=== PATIENT | male | born 1975 | race Hispanic/Latino ===

== ENCOUNTER 2018-01-11 13:57 | Day surgery (SDC) | payer OTHER ==
[2018-01-11 14:51] LABS: Urine Blood NEGATIVE (NEG); Urine Glucose NEGATIVE (NEG); Urine Protein NEGATIVE (NEG); Urine pH 6.5 (5.0-7.0)
[2018-01-11] MEDS ORDERED: NA CHLORIDE 0.9% 1,000 ML ONE (15:09)
[2018-01-11 15:44] LABS: Absolute Lymphocytes (CBC) 1.7 K/uL (0.7-4.9); Absolute Monocytes 0.5 K/uL (0.1-1.3); Absolute Neutrophil 3.5 K/uL (1.8-8.0); Basophils % 0.7 % (0-1.3); Eosinophils % 2.9 % (0-4.4); Hematocrit 45.3 % (39.6-49.0); Lymphocytes % 29.1 % (15.3-44.8); MCH 28.5 pg (27.0-35.0); MCV 86.6 fL (80-100); MPV 8.5 fL (7.6-11.3); RBC Red Blood Cell Count 5.23 M/uL (4.33-5.43)
[2018-01-11 15:55] LABS: Glomerular Filtration Rate > 60 mL/min (>60)
[2018-01-11 15:56] LABS: Bicarbonate 26 mEq/L (21-31); Glucose Level 94 mg/dL (65-120); Lipase 16 U/L (22-51); Potassium 3.8 mEq/L (3.6-5.0); Sodium Level 137 mEq/L (135-145)
[2018-01-11 16:02] LABS: ALT/SGPT 54 IU/L (10-60); AST/SGOT 39 IU/L (10-42); Albumin 4.5 g/dL (3.2-5.5); Alkaline Phosphatase 59 IU/L (42-121); BUN Blood Urea Nitrogen 12 mg/dL (6-20); Bilirubin Direct 0.1 mg/dL (0-0.2); Bilirubin Total 0.6 mg/dL (0.3-1.2); Glomerular Filtration Rate > 90 mL/min (=/>90); Protein, Total 7.4 g/dL (6.0-8.3)
--- NOTE | 2018-01-11 17:18 | RAD REPORT ---
EXAM DESCRIPTION: CT - Abdomen Pelvis W Contrast - 01/11/2018 5:00 pm CLINICAL HISTORY: Abdominal pain. Right lower quadrant pain x2 days COMPARISON: 2014 TECHNIQUE: Computed axial tomography of the abdomen and pelvis was obtained. 100 cc Isovue-300 is ad ministered intravenously. Oral contrast was given. All CT scans are performed using dose optimization technique as appropriate and may include automated exposure control or mA/KV adjustment according to patient size. FINDINGS: The liver, spleen, pancreas, adrenals and kidneys appear unremarkable. The proximal, mid and most of the distal appendix are normal. The distal appendix is indistinct. A fl uid collection measuring 37 x 19 millimeter abuts the distal aspect of the appendix. There is no evidence of diverticulitis IMPRESSION: The distal appendix is indistinct. A 37 x 19 millimeter fluid collection abuts the dista l appendix. This may indicate distal tip appendicitis.
--- NOTE | 2018-01-11 17:35 | ER ---
Nurse's Notes [facility] Name: Wilson Mays Age: 42 yrs Sex: Male : 1975 Arrival Date: 01/11/2018 Time: 14:01 Bed 15 Private MD: Diagnosis: Acute appendicitis Presentation: 01/11 14:03 Presenting complaint: Patient states: i have pain on my R lower abd that spread into hj all my abdomen, started 2 days go; denies nausea and vomiting; denies fever; reports constipation;. Transition of care: patient was not received from another setting of care. Onset of symptoms was January 11, 2018. Care prior to arrival: None. 14:03 Method Of Arrival: Ambulatory hj 14:03 Acuity: HELEN 3 hj Triage Assessment: 14:05 General: Appears in no apparent distress. uncomfortable, Behavior is calm, cooperative, hj appropriate for age. Pain: Complains of pain in right lower quadrant. GI: Reports lower abdominal pain. Historical: - Allergies: 14:05 No Known Allergies; hj - Home Meds: 14:05 None [Active]; hj - PMHx: 14:05 None; hj - PSHx: 14:05 None; hj - Family history:: not pertinent. - Hospitalizations: : No recent hospitalization is reported. Screenin:28 Abuse screen: Denies threats or abuse. Denies injuries from another. Nutritional aj1 screening: No deficits noted. Tuberculosis screening: No symptoms or risk factors identified. 19:15 Fall Risk None identified. lp1 Assessment: 14:05 GI: Bowel sounds Abd is soft Abdomen is tender to palpation. hj 14:28 General: Appears in no apparent distress. uncomfortable, Behavior is calm, cooperative, aj1 appropriate for age. Pain: Complains of pain in right lower quadrant Pain radiates to umbilical area and left lower quadrant Pain currently is 7 out of 10 on a pain scale. Quality of pain is described as burning, sharp, Pain began 2-3 days ago. Is intermittent, Alleviated by nothing. Aggravated by bending over. Neuro: Level of Consciousness is awake, alert, obeys commands, Oriented to person, place, time, situation, Speech is normal, Facial symmetry appears normal. Cardiovascular: Patient's skin is warm and dry. Respiratory: Airway is patent Respiratory effort is even, unlabored, Respiratory pattern is regular, symmetrical. GI: Abdomen is flat, non-distended, Bowel sounds present X 4 quads. Abd is soft X 4 quads Abdomen is tender to palpation in left upper quadrant, right lower quadrant and left lower quadrant Reports lower abdominal pain, constipation, Patient currently denies diarrhea, nausea, vomiting. : No signs and/or symptoms were reported regarding the genitourinary system. Denies burning with urination. EENT: No signs and/or symptoms were reported regarding the EENT system. Derm: No signs and/or symptoms reported regarding the dermatologic system. Skin is pink, warm \T\ dry. normal. Musculoskeletal: No signs and/or symptoms reported regarding the musculoskeletal system. Circulation, motion, and sensation intact. 15:19 Reassessment: Patient appears in no apparent distress at this time. No changes from aj1 previously documented assessment. Patient and/or family updated on plan of care and expected duration. Pain level reassessed. Patient is alert, oriented x 3, equal unlabored respirations, skin warm/dry/pink. 16:20 Reassessment: Patient appears in no apparent distress at this time. No changes from aj1 previously documented assessment. Patient and/or family updated on plan of care and expected duration. Pain level reassessed. Patient is alert, oriented x 3, equal unlabored respirations, skin warm/dry/pink. 17:21 Reassessment: Patient appears in no apparent distress at this time. No changes from aj1 previously documented assessment. Patient and/or family updated on plan of care and expected duration. Pain level reassessed. Patient is alert, oriented x 3, equal unlabored respirations, skin warm/dry/pink. 18:21 Reassessment: Patient and/or family updated on plan of care and expected duration. Pain aj1 level reassessed. General: Appears in no apparent distress. uncomfortable, Behavior is calm, cooperative, appropriate for age. Pain: Complains of pain in abdomen. Neuro: Level of Consciousness is awake, alert, obeys commands. Cardiovascular: Patient's skin is warm and dry. Respiratory: Airway is patent Respiratory effort is even, unlabored, Respiratory pattern is regular, symmetrical. GI: Abdomen is flat, non-distended, Abd is soft X 4 quads. Derm: Skin is pink, warm \T\ dry. normal. Musculoskeletal: Circulation, motion, and sensation intact. Vital Signs: 14:05 BP 125 / 89; Pulse 64; Resp 18; Temp 97.5(TE); Pulse Ox 100% on R/A; Weight 70.31 kg; hj Height 5 ft. 5 in. (165.10 cm); Pain 6/10; 14:28 BP 125 / 89; Pulse 63; Resp 18; Pulse Ox 97% on R/A; aj1 15:20 BP 121 / 86; Pulse 53; Resp 18; Pulse Ox 100% on R/A; aj1 16:39 BP 118 / 83; Pulse 59; Resp 18; Pulse Ox 98% on R/A; mh5 17:21 BP 118 / 80; Pulse 56; Resp 18; Pulse Ox 100% on R/A; aj1 18:22 BP 123 / 87; Pulse 60; Resp 18; Pulse Ox 100% on R/A; aj1 14:05 Body Mass Index 25.79 (70.31 kg, 165.10 cm) ED Course: 14:01 Patient arrived in ED. mr 14:04 Triage completed. hj 14:05 Arm band placed on right wrist. hj 14:22 Marcelino Ulrich MD is Attending Physician. rn 14:28 Joanie Agrawal RN is Primary Nurse. aj1 14:28 Patient has correct armband on for positive identification. aj1 14:28 No provider procedures requiring assistance completed. aj1 16:[address] vm2 17:02 CT completed. Patient moved back from CT. 2 17:03 CT Abd/Pelvis - W/Contrast In Process Unspecified. EDMS 17:34 Lobo Paul MD is Hospitalizing Provider. rn 19:15 Patient admitted, IV remains in place. lp1 Administered Medications: 15:18 Drug: NS 0.9% 1000 ml Route: IV; Rate: 1000 ml; Site: right antecubital; aj1 18:01 Drug: Rocephin - (cefTRIAXone) 1 grams Route: IVPB; Infused Over: 30 mins; Site: right aj1 forearm; 18:02 Drug: Flagyl 500 mg Volume: 100 ml; Route: IVPB; Rate: 200 ml/hr; Infused Over: 30 aj1 mins; Site: right forearm; 18:02 Drug: morphine 4 mg Route: IVP; Site: right antecubital; aj1 18:02 Drug: Zofran 4 mg Route: IVP; Site: right forearm; aj1 Outcome: 17:34 Decision to Hospitalize by Provider. rn 19:15 Admitted to OR lp1 19:15 Condition: stable 19:15 Instructed on the need for admit, Patient to OR at this time 19:15 Patient left the ED. lp1 Signatures: Dispatcher [employer] EDMS Joanie Agrawal RN RN aj1 Estelle Licea mr Marcelino Ulrich MD MD rn Pena, Laura, RN RN 1 Darryl Carias RN RN hj Martinez, Maria [facility] Bri Aguilera [facility] Corrections: (The following items were deleted from the chart) 14:07 14:05 Pulse 64bpm; Resp 18bpm; Pulse Ox 100% RA; Temp 97.5F Temporal; 70.31 kg; Height hj 5 ft. 5 in.; BMI: 25.7; Pain 6/10; hj 20:01 20:00 Patient left the ED. lp1 lp1
--- NOTE | 2018-01-11 17:35 | EDPHYS ---
Physician Documentation [facility] Name: Wilson Mays Age: 42 yrs Sex: Male : 1975 Arrival Date: 01/11/2018 Time: 14:01 Bed 15 Private MD: ED Physician Marcelino Ulrich HPI: 01/11 15:29 This 42 yrs old Male presents to ER via Ambulatory with complaints of rn Abdominal Pain. 15:59 The patient presents with abdominal pain in the lower abdomen. rn 15:59 The patient presents with abdominal pain. Onset: The symptoms/episode began/occurred 2 rn day(s) ago. The symptoms do not radiate. Associated signs and symptoms: Pertinent positives: constipation, Pertinent negatives: diarrhea, fever, hematuria, nausea, testicular pain, vomiting, vomiting blood. The symptoms are described as crampy. Modifying factors: The symptoms are alleviated by nothing, the symptoms are aggravated by touching the area. Severity of pain: At its worst the pain was mild. The patient has not experienced similar symptoms in the past. Reports lower abd pain for 2 days, assoc with constipation, no vomiting/diarrhea. Historical: - Allergies: 14:05 No Known Allergies; hj - Home Meds: 14:05 None [Active]; hj - PMHx: 14:05 None; hj - PSHx: 14:05 None; hj - Family history:: not pertinent. - Hospitalizations: : No recent hospitalization is reported. ROS: 15:59 Constitutional: Negative for fever, chills, and weight loss, Eyes: Negative for injury, rn pain, redness, and discharge, Neck: Negative for injury, pain, and swelling, Cardiovascular: Negative for chest pain, palpitations, and edema, Respiratory: Negative for shortness of breath, cough, wheezing, and pleuritic chest pain, Abdomen/GI: + abd pain, + constipation Back: Negative for injury and pain, MS/Extremity: Negative for injury and deformity, Skin: Negative for injury, rash, and discoloration, Neuro: Negative for headache, weakness, numbness, tingling, and seizure. Exam: 15:59 Constitutional: This is a well developed, well nourished patient who is awake, alert, rn and in no acute distress. Head/Face: Normocephalic, atraumatic. Eyes: Pupils equal round and reactive to light, extra-ocular motions intact. Lids and lashes normal. Conjunctiva and sclera are non-icteric and not injected. Cornea within normal limits. Periorbital areas with no swelling, redness, or edema. Cardiovascular: Regular rate and rhythm with a normal S1 and S2. No gallops, murmurs, or rubs. Normal PMI, no JVD. No pulse deficits. Respiratory: Lungs have equal breath sounds bilaterally, clear to auscultation and percussion. No rales, rhonchi or wheezes noted. No increased work of breathing, no retractions or nasal flaring. Abdomen/GI: soft, + mild LLQ and RLQ tenderness, no rebound/guarding MS/ Extremity: Pulses equal, no cyanosis. Neurovascular intact. Full, normal range of motion. Equal circumference. Neuro: Awake and alert, GCS 15, oriented to person, place, time, and situation. Cranial nerves II-XII grossly intact. Motor strength 5/5 in all extremities. Sensory grossly intact. Cerebellar exam normal. Normal gait. Vital Signs: 14:05 BP 125 / 89; Pulse 64; Resp 18; Temp 97.5(TE); Pulse Ox 100% on R/A; Weight 70.31 kg; hj Height 5 ft. 5 in. (165.10 cm); Pain 6/10; 14:28 BP 125 / 89; Pulse 63; Resp 18; Pulse Ox 97% on R/A; aj1 15:20 BP 121 / 86; Pulse 53; Resp 18; Pulse Ox 100% on R/A; aj1 16:39 BP 118 / 83; Pulse 59; Resp 18; Pulse Ox 98% on R/A; mh5 17:21 BP 118 / 80; Pulse 56; Resp 18; Pulse Ox 100% on R/A; aj1 18:22 BP 123 / 87; Pulse 60; Resp 18; Pulse Ox 100% on R/A; aj1 14:05 Body Mass Index 25.79 (70.31 kg, 165.10 cm) MDM: 14:22 Patient medically screened. rn 17:32 Differential diagnosis: appendicitis, diverticulitis, non-specific abd pain, rn Ureterolithiasis, urinary tract infection. Data reviewed: vital signs, nurses notes, lab test result(s), radiologic studies, CT scan, and as a result, I will admit patient. Counseling: I had a detailed discussion with the patient and/or guardian regarding: the historical points, exam findings, and any diagnostic results supporting the discharge/admit diagnosis, lab results, radiology results, the need for further work-up and treatment in the hospital. Admission orders: after a detailed discussion of the patient's condition and case, the admit orders are written by me. ED course: Consulted with Dr. Paul, will admit for appendicitis and appendectomy.. 01/11 14:43 Order name: Urine Dipstick--Ancillary (enter results); Complete Time: 15:52 bd 01/11 14:44 Order name: Basic Metabolic Panel; Complete Time: 16:09 rn 01/11 14:44 Order name: CBC with Diff; Complete Time: 15:52 rn 01/11 14:44 Order name: Creatinine for Radiology; Complete Time: 16:09 rn 01/11 14:44 Order name: Hepatic Function; Complete Time: 16:10 rn 01/11 14:44 Order name: Lipase; Complete Time: 16:09 rn 01/11 14:44 Order name: IV Saline Lock; Complete Time: 14:45 rn 01/11 14:44 Order name: Labs collected and sent; Complete Time: 14:45 rn 01/11 14:44 Order name: CT Abd/Pelvis - W/Contrast; Complete Time: 17:22 rn 01/11 17:26 Order name: NPO; Complete Time: 17:32 rn Administered Medications: 15:18 Drug: NS 0.9% 1000 ml Route: IV; Rate: 1000 ml; Site: right antecubital; aj1 18:01 Drug: Rocephin - (cefTRIAXone) 1 grams Route: IVPB; Infused Over: 30 mins; Site: right aj1 forearm; 18:02 Drug: Flagyl 500 mg Volume: 100 ml; Route: IVPB; Rate: 200 ml/hr; Infused Over: 30 aj1 mins; Site: right forearm; 18:02 Drug: morphine 4 mg Route: IVP; Site: right antecubital; aj1 18:02 Drug: Zofran 4 mg Route: IVP; Site: right forearm; aj1 Disposition: 01/11/18 17:34 Hospitalization ordered by Lobo Paul for Observation. Preliminary diagnosis is Acute appendicitis. - Bed requested for Telemetry/MedSurg (observation). - Status is Observation. lp1 - Condition is Stable. - Problem is new. - Symptoms have improved. UTI on Admission? No Signatures: Dispatcher [employer] Joanie Oconnor, RN RN aj1 Marcelino Ulrich MD MD rn Pena, Laura, RN RN lp1 Darryl Carias RN RN Arti Hyatt RN RN
[2018-01-11] MEDS ORDERED: ONDANSETRON 4 MG/2 ML VIAL ONE ×2 (17:41→19:54)
[2018-01-11] MEDS ORDERED: MORPHINE 4 MG/ML SYR ONE (17:41)
[2018-01-11] MEDS ORDERED: CEFTRIAXONE/SWI 1gm 1 GM/10 ML SYR ONE (17:41)
[2018-01-11] MEDS ORDERED: METRONIDAZOLE 500mg IVPB 500 MG/100 ML BAG IV ONE (17:42)
[2018-01-11] MEDS ORDERED: LIDOCAINE 2% MPF 5 ML VIAL ONE (19:12)
[2018-01-11] MEDS ORDERED: FENTANYL CITR 100 MCG/2 ML ONE (19:12)
[2018-01-11] MEDS ORDERED: ROCURONIUM 50 MG/5 ML VIAL IV ONE (19:12)
[2018-01-11] MEDS ORDERED: PROPOFOL 200 MG/20 ML VIAL IV ONE (19:12)
[2018-01-11] MEDS ORDERED: Ringers Lactate 1,000 ML IV ONE (19:27)
--- NOTE | 2018-01-11 19:37 | P.HP ---
Date of Service: 01/11/18 PC: This 42-year-old male presents emergency room with severe abdominal pain for diagnosis and treatment. HPC: Patient has been experiencing abdominal pain since earlier today. Pain is now drifted to the right lower quadrant and is persistent nature. Says is exquisitely tender when pressed on in that area. Starting hurting when he walks. PMH: Negative PSHx: Negative SOC: No known allergies, works as a welder plastic SYS REVIEW: No cough, wheeze, shortness of breath. No chest pain or palpitations. No urinary complaints O/E awake alert stable HEENT: Not jaundiced Chest: Chest movement equal bilateral ABD: Tender with guarding in the right lower quad LOCO: Intact DATA: Normal white cell count but CT scan suggestive of acute appendicitis with fluid around the tip. Clinically he has peritoneal signs that localized to the right lower quadrant IMPRESSION: Acute abdomen with appendicitis PLAN: I will take him to the operating room for laparoscopic possible open appendectomy. The risks of this procedure have been discussed. The possibility of bleeding, infection, injury to bowel and blood vessels has been described. The possible need for an open and/or further surgeries and procedures was discussed. He understands and wants us to proceed.
[2018-01-11] MEDS ORDERED: KETOROLAC 30 MG/ML INJ ONE (19:53)
[2018-01-11] MEDS ORDERED: DEXAMETHASONE 10 MG/ML VIAL ONE (19:54)
[2018-01-11] MEDS ORDERED: NEOSTIGMINE 1 MG/ML -5 ML SYRINGE ONE (20:20)
[2018-01-11] MEDS ORDERED: GLYCOPYRROLATE 0.2 MG/ML SYR ONE (20:20)
--- NOTE | 2018-01-11 21:03 | P.OP ---
Preoperative diagnosis: Acute abdomen with appendicitis Postoperative diagnosis: The same Primary procedure: Laparoscopic appendectomy Secondary procedure: Removal of cystic mass Anesthesia: General Estimated blood loss: Less than 10 cc Specimen: 1 appendix, 1 fluid filled cystic mass Operative Technique: The patient brought the operating room and placed supine on the table. After the induction of adequate general endotracheal anesthesia, the area of the abdomen was prepped with a DuraPrep solution, and he was draped in usual aseptic manner. A subumbilical incision was made. This brought down through the skin and subcutaneous tissue. The tissue port was used to enter the peritoneal cavity and created pneumoperitoneum to approximately 12 mm of mercury. Under direct vision a 5 mm trocar was placed in the lower midline, and another in the right upper quadrant. The patient was placed in reverse Trendelenburg and rolled to the left. We could see the right lower quadrant. The appendix was identified. It was mildly congested at the distal portion of the appendix. The base of the appendix was identified. A window was made in the mesentery of the appendix. The linear Stapler was now placed across the base of the appendix at its junction with the cecum and fired. The mesentery of the appendix was taken down using a vascular reload. This pus was now placed into an Endo-Catch and brought out through the umbilical trocar site. At this point the abdomen is inspected to ensure adequate hemostasis. We noted in the true pelvis on the floor that there was this large cystic mass measuring it appeared about 4 cm by 6 cm. It appeared fluid filled. It did not appear to be attached anything. It was placed in an Endo-Catch and brought out through the umbilical trocar site taking care not to disrupt reversibility fluid. This will be sent for histopathology for examination. At this point the abdomen is inspected to ensure adequate hemostasis. No other intra-abdominal pathology was noted. The umbilical trocar was now approximated using the Endo Close an absorbable suture. The pneumoperitoneum was collapsed, the trocars removed, and candido applied to the skin. At the end of the procedure he was stable when sent to the recovery room. Needle sponge instrument count were correct. No drains were placed. Complications: None Transferred to: Recovery Room Condition: Good
[2018-01-11] MEDS ORDERED: HYDROCODONE/APAP 7.5/325 MG TAB PO PRN (21:06)
[2018-01-11] MEDS ORDERED: MORPHINE 4 MG/ML SYR IV PRN (21:06)
[2018-01-11] MEDS ORDERED: ONDANSETRON 4 MG/2 ML VIAL IV PRN (21:06)
[2018-01-11] MEDS: Ringers Lactate 1,000 ML IV SCH (21:34)
[2018-01-11 21:41] VITALS: BMI 24.1
[2018-01-12] MEDS: Ringers Lactate 1,000 ML IV SCH (04:21)
[2018-01-12 12:33] VITALS: BP 126/84; TEMP 98.3
[2018-01-12 15:28] VITALS: O2SAT 97
== END 2018-01-12 15:02 | disposition home or self-care (01) ==
LOC: ER 13:57 → ERHOLD 17:34 → DS 17:34 → UNDOADMOB 17:34 → ERHOLD 21:13 → 2ND 21:13 → UNDODISOB 01-12 15:02 → DS 01-12 15:02
PROVIDERS: ATTEND Surgery
PROC: 0WBF4ZZ Excision of Abdominal Wall, Percutaneous Endoscopic Approach (ICD-10-PCS; 2018-01-11)
PROC: 0DTJ4ZZ Resection of Appendix, Percutaneous Endoscopic Approach (ICD-10-PCS; principal; 2018-01-11 20:00)
DX: K35.80 Unspecified acute appendicitis (principal); R19.09 Other intra-abdominal and pelvic swelling, mass and lump
CPT/HCPCS: 36415; 74177; 80048; 80076; 81003; 83690; 85025; 88108; 88305; 88312; 99285; G0378; J0696; J1100; J2405; J2710; J3010; J7030; Q9967

== ENCOUNTER 2020-12-17 16:44 | Emergency (ER) | payer OTHER ==
[2020-12-17 22:13] LABS: Absolute Lymphocytes (CBC) 1.9 K/uL (0.7-4.9); Hematocrit 41.9 % (39.6-49.0); Lymphocytes % 39.2 % (15.3-44.8); MPV 8.3 fL (7.6-11.3)
[2020-12-17] MEDS ORDERED: MAGNES/ALUMIN/SIMET 30ML UCUP ONE (22:24)
[2020-12-17] MEDS ORDERED: LIDOCAINE VISCOUS 2% SOLN 15 ML UDC ONE (22:24)
[2020-12-17 22:26] LABS: ALT/SGPT 68 U/L (12-78); AST/SGOT 39 U/L (15-37); Albumin 4.1 g/dL (3.4-5.0); Alkaline Phosphatase 78 U/L (45-117); BUN Blood Urea Nitrogen 10 mg/dL (7-18); Bicarbonate 26 mmol/L (21-32); Bilirubin Direct 0.2 mg/dL (0-0.2); Bilirubin Total 0.6 mg/dL (0.2-1.0); Glucose Level 92 mg/dL (74-106); Lipase 79 U/L (73-393); Potassium 3.8 mmol/L (3.5-5.1); Protein, Total 7.4 g/dL (6.4-8.2); Sodium Level 141 mmol/L (136-145)
--- NOTE | 2020-12-17 23:28 | ER ---
Nurse's Notes [facility] Name: Wilson Mays Age: 45 yrs Sex: Male : 1975 Arrival Date: 12/17/2020 Time: 16:50 Bed 14 Private MD: George Orta Diagnosis: Gastritis, unspecified, without bleeding Presentation: 12/17 17:25 Chief complaint: Patient states: RUQ pain off and on for 3 months, had an ultrasound ca1 but found nothing. It started again 2 days ago, is getting worse. Denies N/V/D. Coronavirus screen: Client denies travel out of the [place] in the last 14 days. At this time, the client does not indicate any symptoms associated with coronavirus-19. Ebola Screen: Patient negative for fever greater than or equal to 101.5 degrees Fahrenheit, and additional compatible Ebola Virus Disease symptoms Patient denies exposure to infectious person. Patient denies travel to an Ebola-affected area in the 21 days before illness onset. No symptoms or risks identified at this time. Initial Sepsis Screen: Does the patient meet any 2 criteria? No. Patient's initial sepsis screen is negative. Does the patient have a suspected source of infection? No. Patient's initial sepsis screen is negative. Risk Assessment: Do you want to hurt yourself or someone else? Patient reports no desire to harm self or others. Onset of symptoms was December 17, 2020. 17:25 Method Of Arrival: Ambulatory ca1 17:25 Acuity: HELEN 3 ca1 Historical: - Allergies: 17:27 No Known Allergies; ca1 - Home Meds: 17:27 None [Active]; ca1 - PMHx: 17:27 None; ca1 - PSHx: 17:27 Appendectomy; ca1 - Immunization history:: Flu vaccine is not up to date. - Social history:: Smoking status: Patient denies any tobacco usage or history of. Screenin:28 Abuse screen: Denies threats or abuse. Denies injuries from another. Nutritional ss screening: No deficits noted. Tuberculosis screening: Never had TB. Fall Risk None identified. Assessment: 21:28 General: Appears in no apparent distress. comfortable, Behavior is calm, cooperative, ss Denies fever, feeling ill, fatigue, chills. Pain: Complains of pain in right upper quadrant Pain currently is 8 out of 10 on a pain scale. Quality of pain is described as crampy, tender, Pain began 3 months ago. Got better, but became worse two days ago Is intermittent, Aggravated by increased activity, repositioning, Noted to be grimacing and guarding with movement. Neuro: Level of Consciousness is awake, alert, obeys commands, Oriented to person, place, time, situation, Reception Clerk are equal bilaterally Moves all extremities. Full function Gait is steady, Speech is normal, Pupils are PERRLA. Cardiovascular: Capillary refill < 3 seconds is brisk in bilateral fingers Patient's skin is warm and dry. Respiratory: Airway is patent Respiratory effort is even, unlabored, Respiratory pattern is regular, symmetrical. GI: Bowel sounds present X 4 quads. Abd is soft X 4 quads Abdomen is tender to palpation in right upper quadrant. GI: Abdomen is non-distended, Patient currently denies diarrhea, nausea, vomiting. : No signs and/or symptoms were reported regarding the genitourinary system. Denies burning with urination, urinary frequency. EENT: Nares are clear Oral mucosa is moist. Derm: No signs and/or symptoms reported regarding the dermatologic system. Skin is intact, is healthy with good turgor, Skin is dry. Musculoskeletal: Circulation, motion, and sensation intact. Range of motion: intact in all extremities, Swelling absent. 22:12 Reassessment: Pt ambulated to restroom with steady gait. Appears comfortable. ss 23:45 Reassessment: Patient appears in no apparent distress at this time. Patient and/or ss family updated on plan of care and expected duration. Pain level reassessed. PT reports that pain has minimally decreased. Verbal order for Morphine [address] Marquez ordered and administered. Pt has called his for a ride home. 23:54 Reassessment: Patient appears in no apparent distress at this time. Patient states ss feeling better. Patient states symptoms have improved. Vital Signs: 17:25 BP 114 / 84; Pulse 64; Resp 16 S; Temp 97.3(TE); Pulse Ox 100% on R/A; Weight 67.13 kg ca1 (R); Height 5 ft. 5 in. (165.10 cm) (R); Pain 8/10; 22:05 BP 109 / 79; Pulse 67; Resp 15; Pulse Ox 98% on R/A; Pain 8/10; ss 17:25 Body Mass Index 24.63 (67.13 kg, 165.10 cm) ca1 ED Course: 16:50 Patient arrived in ED. am2 16:50 George Orta MD is Private Physician. am2 17:26 Triage completed. ca1 17:27 Arm band placed on right wrist. ca1 19:38 Crow Marquez MD is Attending Physician. tw4 21:28 Patient has correct armband on for positive identification. Bed in low position. Call ss light in reach. 22:03 Mercedes Massey, DILLAN is Primary Nurse. ss 22:04 Inserted saline lock: 20 gauge in right antecubital area, using aseptic technique. ss Blood collected. Patient maintains SpO2 saturation greater than 95% on room air. 23:27 George Orta MD is Referral Physician. tw4 23:40 US Abdomen Limited In Process Unspecified. EDMS 23:53 No provider procedures requiring assistance completed. IV discontinued, intact, ss bleeding controlled, No redness/swelling at site. Pressure dressing applied. Administered Medications: 22:12 Drug: GI Cocktail without - (Maalox Suspension 30 ml, Lidocaine Liquid 2 % 15 ss ml) Route: PO; 23:43 Follow up: Response: No adverse reaction; No adverse reaction. Pt reports minimal reliefss 23:44 Drug: morphine 2 mg Route: IVP; Site: right antecubital; ss 23:53 Follow up: Response: No adverse reaction; Pain is decreased ss Outcome: 23:28 Discharge ordered by . tw4 23:53 Discharged to home ambulatory, with family. ss 23:53 Condition: good 23:53 Discharge instructions given to patient, Instructed on discharge instructions, follow up and referral plans. medication usage, Demonstrated understanding of instructions, follow-up care, medications, Prescriptions given X 2. 23:56 Patient left the ED. Signatures: Dispatcher [employer] EDMS Mercedes Massey, DILLAN GRIMALDO Nina Palacio am2 Crow Marquez MD MD tw4 Muriel Navarro RN RN ca1
--- NOTE | 2020-12-17 23:28 | EDPHYS ---
Physician Documentation [facility] Name: Wilson Mays Age: 45 yrs Sex: Male : 1975 Arrival Date: 12/17/2020 Time: 16:50 Bed 14 Private MD: George Orta ED Physician Crow Marquez HPI: 12/17 20:42 This 45 yrs old Male presents to ER via Ambulatory with complaints of tw4 Abdominal Pain - RUQ. 20:42 The patient presents with abdominal pain in the right upper quadrant. The symptoms do tw4 not radiate. Associated signs and symptoms: none. The symptoms are described as 2 day(s) ago, sharp. Modifying factors: The symptoms are alleviated by remaining still, the symptoms are aggravated by movement. Severity of pain: At its worst the pain was moderate in the emergency department the pain is unchanged. The patient has not experienced similar symptoms in the past. Historical: - Allergies: 17:27 No Known Allergies; ca1 - Home Meds: 17:27 None [Active]; ca1 - PMHx: 17:27 None; ca1 - PSHx: 17:27 Appendectomy; ca1 - Immunization history:: Flu vaccine is not up to date. - Social history:: Smoking status: Patient denies any tobacco usage or history of. ROS: 20:42 Constitutional: Negative for fever, chills, and weight loss, Eyes: Negative for injury, tw4 pain, redness, and discharge, Cardiovascular: Negative for chest pain, palpitations, and edema, Respiratory: Negative for shortness of breath, cough, wheezing, and pleuritic chest pain, Back: Negative for injury and pain, MS/Extremity: Negative for injury and deformity, Skin: Negative for injury, rash, and discoloration, Neuro: Negative for headache, weakness, numbness, tingling, and seizure. 20:42 Abdomen/GI: Positive for abdominal pain, Negative for nausea and vomiting, nausea, vomiting, and diarrhea, nausea, vomiting, abdominal cramps, abdominal distension, anorexia, dysphagia, hematemesis, black/tarry stool, rectal pain, rectal bleeding. Exam: 20:42 Constitutional: This is a well developed, well nourished patient who is awake, alert, tw4 and in no acute distress. Head/Face: Normocephalic, atraumatic. Chest/axilla: Normal chest wall appearance and motion. Nontender with no deformity. No lesions are appreciated. Cardiovascular: Regular rate and rhythm with a normal S1 and S2. No gallops, murmurs, or rubs. Normal PMI, no JVD. No pulse deficits. Respiratory: Lungs have equal breath sounds bilaterally, clear to auscultation and percussion. No rales, rhonchi or wheezes noted. No increased work of breathing, no retractions or nasal flaring. Back: No spinal tenderness. No costovertebral tenderness. Full range of motion. Skin: Warm, dry with normal turgor. Normal color with no rashes, no lesions, and no evidence of cellulitis. MS/ Extremity: Pulses equal, no cyanosis. Neurovascular intact. Full, normal range of motion. Neuro: Awake and alert, GCS 15, oriented to person, place, time, and situation. Cranial nerves II-XII grossly intact. Motor strength 5/5 in all extremities. Sensory grossly intact. Cerebellar exam normal. Normal gait. 20:42 Abdomen/GI: Inspection: abdomen appears normal, Bowel sounds: diminished, Palpation: moderate abdominal tenderness, in the right upper quadrant. Vital Signs: 17:25 BP 114 / 84; Pulse 64; Resp 16 S; Temp 97.3(TE); Pulse Ox 100% on R/A; Weight 67.13 kg ca1 (R); Height 5 ft. 5 in. (165.10 cm) (R); Pain 8/10; 22:05 BP 109 / 79; Pulse 67; Resp 15; Pulse Ox 98% on R/A; Pain 8/10; ss 17:25 Body Mass Index 24.63 (67.13 kg, 165.10 cm) ca1 MDM: 21:41 Patient medically screened. tw4 23:38 Differential diagnosis: cholecystitis, Cholelithiasis, diverticulitis, gastroesophageal tw4 reflux disease, non-specific abd pain, pancreatitis, Peptic Ulcer Disease, Perf. Duodenal Ulcer, Perf. Gastric Ulcer, Peritonitis. Data reviewed: vital signs, nurses notes. Data interpreted: Pulse oximetry: Interpretation: normal. Counseling: I had a detailed discussion with the patient and/or guardian regarding: the historical points, exam findings, and any diagnostic results supporting the discharge/admit diagnosis, lab results, radiology results. Medication response: morphine markedly relieved the patient's pain. Symptoms have improved. Response to treatment: and as a result, I will discharge patient. Special discussion: I discussed with the patient/guardian in detail that at this point there is no indication for admission to the hospital. It is understood, however, that if the symptoms persist or worsen the patient needs to return immediately for re-evaluation. 12/17 19:38 Order name: Basic Metabolic Panel tw4 12/17 19:38 Order name: CBC with Diff tw4 12/17 19:38 Order name: Hepatic Function tw4 12/17 19:38 Order name: Lipase tw4 12/17 19:39 Order name: Basic Metabolic Panel EDMS 12/17 19:39 Order name: CBC with Automated Diff EDMS 12/17 19:38 Order name: IV Saline Lock; Complete Time: 22:04 tw4 12/17 19:38 Order name: Labs collected and sent; Complete Time: 22:04 tw4 12/17 19:39 Order name: Liver (Hepatic) Function EDMS 12/17 19:39 Order name: Lipase EDMS 12/17 20:40 Order name: US Abdomen Limited tw4 Administered Medications: 22:12 Drug: GI Cocktail without - (Maalox Suspension 30 ml, Lidocaine Liquid 2 % 15 ss ml) Route: PO; 23:43 Follow up: Response: No adverse reaction; No adverse reaction. Pt reports minimal reliefss 23:44 Drug: morphine 2 mg Route: IVP; Site: right antecubital; ss 23:53 Follow up: Response: No adverse reaction; Pain is decreased ss Disposition: 12/17/20 23:28 Discharged to Home. Impression: Gastritis, unspecified, without bleeding. - Condition is Stable. - Discharge Instructions: Gastritis, Adult, [id number]. - Prescriptions for Bentyl 20 mg Oral Tablet - take 1 tablet by ORAL route every 6 hours As needed; 20 tablet. Pepcid 20 mg Oral Tablet - take 1 tablet by ORAL route every 12 hours for 10 days; 20 tablet. - Work release form, Medication Reconciliation Form, Thank You Letter, Antibiotic Education, Prescription Opioid Use form. - Follow up: George Orta MD; When: Upon discharge from the Emergency Department; Reason: Recheck today's complaints, Continuance of care, Re-evaluation by your physician. Follow up: Private Physician; When: Upon discharge from the Emergency Department; Reason: Recheck today's complaints, Continuance of care, Re-evaluation by your physician. - Problem is new. - Symptoms have improved. Signatures: Dispatcher [employer] Mercedes Thomas RN RN Crow Lunsford MD MD tw4 Muriel Navarro RN RN ca1 Corrections: (The following items were deleted from the chart) 23:56 23:28 12/17/2020 23:28 Discharged to Home. Impression: Gastritis, unspecified, without ss bleeding. Condition is Stable. Forms are Medication Reconciliation Form, Thank You Letter, Antibiotic Education, Prescription Opioid Use. Follow up: George Orta; When: Upon discharge from the Emergency Department; Reason: Recheck today's complaints, Continuance of care, Re-evaluation by your physician. Follow up: Private Physician; When: Upon discharge from the Emergency Department; Reason: Recheck today's complaints, Continuance of care, Re-evaluation by your physician. Problem is new. Symptoms have improved. tw4
[2020-12-17] MEDS ORDERED: MORPHINE 2 MG/ML SYR ONE (23:58)
[2020-12-18 04:23] VITALS: TEMP 97.3
[2020-12-18 04:24] VITALS: BP 109/79; O2SAT 98
--- NOTE | 2020-12-18 07:44 | RAD REPORT ---
EXAM DESCRIPTION: US - Abdomen Exam Limited - 12/17/2020 9:29 pm CLINICAL HISTORY: Abdominal pain. COMPARISON: November 2020 FINDINGS: The gallbladder wall is not thickened. A gallstone is not seen. The biliary tree is normal caliber. IMPRESSION: Unremarkable gallbladder ultrasound.
== END 2020-12-17 23:56 | disposition home or self-care (01) ==
LOC: ER 16:44
DX: K29.70 Gastritis, unspecified, without bleeding (principal)
CPT/HCPCS: 85025; 80048; 36415; 80076; 83690; 76705; J2270; 96374; 99284

== ENCOUNTER 2024-12-08 06:11 | Day surgery (SDC) | payer OTHER ==
[2024-12-08] MEDS: Ringers Lactate 1,000 ML IV ONE (06:45)
[2024-12-08] MEDS ORDERED: dexAMETHasone 10 MG/ML VIAL ONE (06:59)
[2024-12-08] MEDS ORDERED: propofoL 200 MG/20 ML VIAL IV ONE (06:59)
[2024-12-08] MEDS ORDERED: FENTANYL CITR 100 MCG/2 ML ONE (06:59)
[2024-12-08] MEDS ORDERED: GLYCOPYRROLATE 0.2 MG/ML SYR ONE (06:59)
[2024-12-08] MEDS ORDERED: ONDANSETRON 4 MG/2 ML VIAL ONE (06:59)
[2024-12-08] MEDS ORDERED: MIDAZOLAM HCL 2 MG/2 ML INJ ONE (06:59)
[2024-12-08] MEDS ORDERED: LIDOCAINE 1% MPF 5 ML VIAL ONE (06:59)
[2024-12-08] MEDS ORDERED: ROCURONIUM 50 MG/5 ML VIAL IV ONE (07:32)
[2024-12-08] MEDS: OXYMETAZOLINE HCL 0.05% 30ML NAS ONE (08:00)
[2024-12-08] MEDS: MORPHINE 4 MG/ML SYR ONE (09:00)
[2024-12-08 10:31] VITALS: BP 136/87; TEMP 97.1; O2SAT 100
--- NOTE | 2024-12-09 11:17 | OP ---
Date of Procedure: 12/08/2024 Surgeon: LISA NOBLE Preoperative Diagnoses: 1. Neoplasm, uncertain behavior, larynx. 2. Right vocal cord paralysis, complete. Postoperative Diagnoses: 1. Neoplasm, uncertain behavior, larynx. 2. Right vocal cord paralysis, complete. Procedure: Microsuspension direct laryngoscopy with biopsies of the larynx under general sedation. Anesthesia: General endotracheal anesthesia was administered. Specimens: Obtained from the subglottis and bilateral supraglottic larynx and submitted to pathology for evaluation. Estimated Blood Loss: Less than 5 mL. Findings: Normal bilateral true vocal folds with mild inflammation of bilateral supraglottic false v ocal folds and inflammation of the subglottic mucosa of the anterior subglottis. Complications: None. Disposition: Stable. The patient tolerated the procedure well. Indication For Procedure: The patient is a pleasant 49-year-old male who presented to my outpatient clinic with choking and coughing and hoarseness. Upon examination, flexible laryngoscopic exam revea led complete vocal cord paralysis involving the right vocal cord. CT scan of the neck with contrast demonstrated fullness located in the area of the supraglottic larynx. These are indications to bring the patient to operative suite for the above-mentioned procedure. He understood, all questions were answered. Risks versus benefits, complications were explained in detail and a consent form was sign ed, which was placed in the chart. Description Of Procedure: The patient was transferred from the preoperative holding area to the oper ative suite by Department of Anesthesia, placed on the operating table in supine, sedated, and intuba freddy in normal fashion. Table was rotated to 90 degrees. A bite guard was placed over the upper dent ition for protection. A rigid laryngoscope was introduced along the endotracheal tube and suspended from the [place] stand. I took multiple biopsies of the subglottis and bilateral supraglottic area of t he larynx with small cup forceps and specimen was handed off the field. Hemostasis was achieved with Afrin and epinephrine soaked pledgets. The patient was then de-suspended from the [place] stand. All of the areas of the hypopharynx, larynx, and oropharynx were visualized and I did not detect any othe r abnormalities. Bimanual palpation exam of the oropharynx did not do demonstrate any base of tongue induration or mass palpation. Bilateral upper neck was examined and I did not palpate any lymphaden opathy. The patient was transferred back to Department of Anesthesia in stable condition where he wa s subsequently awakened, extubated, and transferred to the postoperative care unit in stable conditio n. He will be discharged home to use [id number] analgesic medication and will follow up in 2-4 weeks or sooner if needed. BREANNE/JOSEPH Voice ID: [id number] Report ID: [id number]
== END 2024-12-08 09:57 | disposition home or self-care (01) ==
LOC: OR 06:11
PROVIDERS: ATTEND Otolaryngology Facial Plastic Surgery
PROC: 0CBS8ZX Excision of Larynx, Via Natural or Artificial Opening Endoscopic, Diagnostic (ICD-10-PCS; principal; 2024-12-08 07:30)
DX: D38.0 Neoplasm of uncertain behavior of larynx (principal); J38.01 Paralysis of vocal cords and larynx, unilateral
CPT/HCPCS: 88305; 31536; J2704; J2003; J2250; J3010; J1100; J2405; J7120